=== PATIENT | male | born 1990 | race Caucasian/White ===

== ENCOUNTER 2016-08-03 12:27 | Emergency (ER) | payer BC ==
[~2016-08-03] VITALS: Ht 177.8 cm; Wt 78.0 kg
[~2016-08-03 12:27] MED LIST: ACET1TAB43 PO; HYDR-3811 PO
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
[2016-08-03 12:34] VITALS: BP 117/78
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
== END 2016-08-03 13:45 | disposition home or self-care (01) ==
LOC: ED 12:29
DX: S63.522A Sprain of radiocarpal joint of left wrist, initial encounter (principal); W17.89XA Other fall from one level to another, initial encounter; Y93.51 Activity, roller skating (inline) and skateboarding
CPT/HCPCS: 29125; 73110; 99282